=== PATIENT | female | born 1990 | race Caucasian/White ===

== ENCOUNTER 2018-05-09 08:11 | Inpatient (IN) | payer SELFPAY ==
[2018-05-09] MEDS ORDERED: POLYCILLIN/NS 2 GM/100 ML 2 GM/100 ML BAG IV ONE (08:27)
[2018-05-09] MEDS ORDERED: LACTATED RINGERS 1,000 ML IV SCH (09:00)
[2018-05-09 09:12] LABS: Hematocrit 31.3 % (30.3-42.9); Hemoglobin 10.6 gm/dl (10.1-14.3); Mean Corpuscular HGB Conc 34 % (30-34); Mean Corpuscular Volume 73 fl (79-97); Platelet Count 230 K/mm3 (140-440); Red Cell Distribution Width 15.3 % (13.2-15.2)
[2018-05-09 09:15] LABS: Mean Corpuscular Hemoglobin 25 pg (28-32)
[2018-05-09] MEDS ORDERED: BRETHINE SUB-Q PRN (09:27)
[2018-05-09] MEDS ORDERED: XYLOCAINE 2% INFILTRATI ONE (09:27)
[2018-05-09] MEDS ORDERED: MINERAL OIL PO PRN (09:27)
[2018-05-09] MEDS ORDERED: BRETHINE IVP PRN (09:27)
[2018-05-09] MEDS: SUBLIMAZE IV PRN ×2 (09:45→11:50)
--- NOTE | 2018-05-09 09:51 | History and Physical Report ---
History of Present Illness Date of examination: 05/09/18 Date of admission: 05/09/18 08:12 Chief complaint: Contractions History of present illness: 27yo G 3 P 2 0 0 2 at 37 weeks 5 days here with c/o painful contractions since 6am. She reports +FMs and spotting but denies LOF. She is a [facility] patient who initiated care at 5 weeks gestation. record reviewed. Her course was complicated by Rh neg status (RhoGam given 03/06/18) and anemia. She has a history of pyelonephritis (tx'd 09/09 and depression in 2015 (not on med). labs: A neg, antibody neg, pap test normal, Rubella immune, VDRL neg, HBsAg neg, HIV neg, CT/NG neg, MSAFP neg, 1-hr GTT 54, H/H 05/01: 34.5/10.9, GBS pos. Past History Past Medical History: other (pyelonephritis, depression (2015)) Family/Genetic History: diabetes (maternal grandparents), hypertension (Aunt, paternal grandmother), cancer (breast cancer - maternal grandmother) Social history: single, lives with family, smoking (tobacco (social)), other ( alcohol - social). denies: alcohol abuse, prescription drug abuse, IV drug use - Obstetrical History Expected Date of Delivery: 05/25/18 Actual Gestation: 37 Week(s) 5 Day(s) : 3 Para: 2 Hx # Term Pregnancies: 2 Number of Pregnancies: 0 Spontaneous Abortions: 0 Induced : 0 Number of Living Children: 2 #1 Infant Gender: Female year: 2,[birth year] Birthweight: 3.175 kg (7 lbs) Method of Delivery: Vaginal Gestational age at delivery: 40 Complications: none #2 Infant Gender: Male year: 2,[birth year] Birthweight: 3.175 kg (7 lbs) Method of Delivery: Vaginal Gestational age at delivery: 40 Complications: none Medications and Allergies Allergies Allergy/AdvReac Type Severity Reaction Status Date / Time No Known Allergies Allergy Verified 05/09/18 08:34 Active Meds: Active Medications Ephedrine Sulfate (Ephedrine Sulfate) 10 mg IV Q2M PRN PRN Reason: Hypotension Fentanyl (Sublimaze) 100 mcg IV Q2H PRN PRN Reason: Pain Ampicillin Sodium (Ampicillin/Ns 1 Gm/50 Ml) 1 gm in 50 mls @ 100 mls/hr IV Q4HR NICK; Protocol Lactated Ringer's (Lactated Ringers) 1,000 mls @ 125 mls/hr IV DIRECT NICK Oxytocin/Sodium Chloride (Pitocin/Ns 20 Unit/1000ml Drip) 20 units in 1,000 mls @ 125 mls/hr IV DIRECT NICK Oxytocin/Sodium Chloride (Pitocin/Ns 30 Unit/500ml) 30 units in 500 mls @ 0 mls /hr IV TITR NICK; Protocol Mineral Oil (Mineral Oil) 30 ml PO QHS PRN PRN Reason: Constipation Terbutaline Sulfate (Brethine) 0.25 mg SUB-Q ONCE PRN PRN Reason: Hyperstimulation/Hypertonicity Terbutaline Sulfate (Brethine) 0.25 mg IVP ONCE PRN PRN Reason: Hyperstimulation/Hypertonicity Review of Systems All systems: negative - Obstetrical FHR: auscultation normal, category 1 FHR comments: baseline 150, moderate variability, 15x15 accels, no decels Uterine Contraction Monitor Mode: External Cervical Dilatation: 4.5 (per RN) Cervical Effacement Percentage: 80 (per RN) station: -2 (per RN) Uterine Contraction Frequency (min): 3-5 Uterine Contraction Pattern: Regular Results Result Diagrams: 05/09/18 08:45 Abnormal lab results 05/09/18 Range/Units 08:45 MCV 73 L (79-97) fl MCH 25 L (28-32) pg RDW 15.3 H (13.2-15.2) % All other labs normal. Assessment and Plan - Patient Problems (1) 37 weeks gestation of Current Visit: Yes Status: Acute (2) Active labor at term Current Visit: Yes Status: Acute Plan to address problem: Admit to L&D with routine labor orders Anticipate vaginal delivery (3) GBS (group B Streptococcus carrier), +RV culture, currently Current Visit: Yes Status: Acute Plan to address problem: Start antibiotics therapy with ampicillin
[2018-05-09] MEDS ORDERED: PITOCin/NS 30 UNIT/500ML 30 UNITS/500 ML BAG IV SCH (10:00)
[2018-05-09] MEDS ORDERED: PITOCin/NS 20 UNIT/1000ML DRIP 20 UNITS/1,000 ML BAG IV SCH (10:00)
[2018-05-09] MEDS ORDERED: AMPICILLIN/NS 1 GM/50 ML 1 GM/50 ML BAG IV SCH (10:00)
[2018-05-09] MEDS ORDERED: NARCAN 2 MG/2 ML IV PRN (13:39)
--- NOTE | 2018-05-09 13:39 | Anesthesia Consultation ---
Anesthesia Consult and Med Hx Date of service: 05/09/18 - Airway Anesthetic Teeth Evaluation: Good ROM Head & Neck: Adequate Mental/Hyoid Distance: Adequate Mallampati Class: Class II Intubation Access Assessment: Probably Good - Pre-Operative Health Status ASA Pre-Surgery Classification: ASA2 Proposed Anesthetic Plan: Epidural, Spinal - Pulmonary Hx Asthma: No COPD: No Hx Pneumonia: No - Cardiovascular System Hx Hypertension: No - Central Nervous System Hx Seizures: No Hx Psychiatric Problems: No - Endocrine Hx Renal Disease: No Hx End Stage Renal Disease: No Hx Hypothyroidism: No Hx Hyperthyroidism: No - Hematic Hx Anemia: No Hx Sickle Cell Disease: No - Other Systems Hx Alcohol Use: No
[2018-05-09] MEDS: fentaNYL-BUPIV 2 MCG/ML-0.125% 200 MCG/100 ML BAG EPIDURAL SCH ×2 (14:30→17:40)
--- NOTE | 2018-05-09 17:31 | Procedure Note ---
OB Delivery Note - Delivery Date of Delivery: 05/09/18 (17:06) Surgeon: RICKEY BURNS (EDOUARD) Estimated blood loss: 200cc - Vaginal Delivery presentation: compound (right anterior arm) Delivery position: OA Intrapartum events: none Delivery induction: none Delivery augmentation: rupture of membranes (AROM @ 1700, clear, moderate), pitocin Delivery monitor: external FHT, external uterine Route of delivery: Delivery placenta: spontaneous (17:14) Delivery cord: nuchal cord, 3 umbilical vessels Episiotomy: none Delivery laceration: none Anesthesia: epidural Delivery comments: of a vigorous 6 lbs 7 oz male on 05/09/18 @ 17:06. Baby placed [id number] on maternal abdomen. After 3 mins, umbilical cord double-clamped by EDOUARD Burns and cut by FOB. Cord blood collected. Spont delivery of placenta, [place]- side presenting @ 17:14. Small lochia noted. Fundal massage and IV Pitocin bolus initiated. Fundus F/ML/U-3. Placenta intact; discarded. No lacerations noted. Perineum intact. Mom and baby in stable condition. - A at 1 minute: 8 at 5 minutes: 9 Gender: Male (6 lbs 7 oz)
[2018-05-09] MEDS ORDERED: TUCKS PAD TP PRN (17:33)
[2018-05-09] MEDS ORDERED: BENADRYL PO PRN (17:33)
[2018-05-09] MEDS ORDERED: LANSINOH TP PRN (17:33)
[2018-05-09] MEDS ORDERED: DULCOLAX PR PRN (17:33)
[2018-05-09] MEDS ORDERED: PHENERGAN PR PRN (17:33)
[2018-05-09] MEDS ORDERED: MILK OF MAGNESIA PO PRN (17:33)
[2018-05-09] MEDS ORDERED: PHENERGAN PO PRN (17:33)
[2018-05-09] MEDS ORDERED: TYLENOL PO PRN (17:33)
[2018-05-09] MEDS ORDERED: ZOFRAN IV PRN (17:33)
[2018-05-09] MEDS ORDERED: SODIUM CHLORIDE FLUSH SYRINGE 10 ML IV SCH (18:00)
[2018-05-09] MEDS: MOTRIN PO SCH (18:18)
[2018-05-10] MEDS: MOTRIN PO SCH ×4 (06:00→17:55)
[2018-05-10 06:24] LABS: Hematocrit 33.4 % (30.3-42.9); Hemoglobin 10.9 gm/dl (10.1-14.3)
[2018-05-10] MEDS: PRENATAL VITAMIN PO SCH (09:29)
--- NOTE | 2018-05-10 10:39 | Progress Note ---
Assessment and Plan A: day 1 S/P . Anemia. P: Supplement with iron. Encourage ambulation. Anticipate discharge tomorrow afternoon. Subjective - Subjective Date of service: 05/10/18 Principal diagnosis: day 1 S/P . Interval history: day 1 S/P . Patient is doing well. Patient reports small amount of lochia. She reports she is voiding without difficulty. Tolerating a regular diet without nausea or vomiting. Patient denies headache, chest pain, cough, shortness of breath, chest pain, leg pain, or heavy vaginal bleeding. Patient reports: appetite normal, voiding normally, pain well controlled, flatus , ambulating normally : doing well Objective - Vital Signs Latest vital signs: Vital Signs Temp Pulse Resp BP BP 05/10/18 07:00 98.7 F 74 18 101/69 05/09/18 23:30 98.6 F 71 16 101/79 05/09/18 19:30 98.7 F 67 18 112/64 05/09/18 18:12 96 H 117/80 05/09/18 17:56 88 116/58 05/09/18 17:41 82 122/65 05/09/18 17:26 90 115/59 05/09/18 17:11 93 H 118/62 05/09/18 16:57 81 114/57 05/09/18 16:26 79 109/68 05/09/18 16:11 67 106/63 05/09/18 15:56 79 114/59 05/09/18 15:41 94 H 124/57 05/09/18 15:28 86 131/61 05/09/18 15:12 88 120/68 05/09/18 14:57 86 119/63 05/09/18 14:41 75 106/58 05/09/18 14:39 80 95/50 05/09/18 14:37 79 114/64 05/09/18 14:35 89 107/60 05/09/18 14:34 95 H 122/60 05/09/18 14:31 96 H 112/63 05/09/18 14:29 99 H 118/61 05/09/18 14:27 94 H 119/56 05/09/18 14:25 87 110/66 05/09/18 14:23 83 114/69 05/09/18 14:21 95 H 111/64 05/09/18 14:19 94 H 107/62 05/09/18 14:17 86 107/59 05/09/18 14:15 107 H 109/66 05/09/18 14:13 96 H 109/59 05/09/18 14:11 98 H 111/66 05/09/18 14:09 83 108/62 05/09/18 14:07 101 H 108/62 05/09/18 14:05 89 104/63 05/09/18 14:03 96 H 101/72 05/09/18 14:01 86 106/63 05/09/18 13:59 87 115/67 05/09/18 13:57 97 H 116/57 05/09/18 13:55 83 110/62 05/09/18 13:53 80 103/57 05/09/18 13:51 82 103/57 05/09/18 13:49 81 111/56 05/09/18 13:37 80 114/55 05/09/18 13:20 80 106/59 05/09/18 13:06 77 102/59 05/09/18 12:50 81 110/64 05/09/18 12:35 86 109/65 05/09/18 12:20 80 109/63 05/09/18 12:06 75 111/61 05/09/18 11:50 76 110/71 Intake and Output 05/09/18 05/10/18 05/10/18 23:59 07:59 15:59 Intake Total 800 Output Total 1400 600 Balance -600 -600 Intake: Oral 200 Intake, Free Water 600 Output: Urine 1400 600 Void 1400 600 Other: Total, Intake Amount 200 Total, Output Amount 600 600 # Voids Void 1 1 Estimated Blood Loss 200 - Exam Abdomen: Present: normal appearance, soft. Absent: distention, tenderness, guarding, rigidity Uterus: Present: normal, firm, fundal height below umbilicus Extremities: Present: normal
[2018-05-10] MEDS: NORCO 5/325 PO PRN (20:51)
[2018-05-11] MEDS: MOTRIN PO SCH
[2018-05-11 07:21] VITALS: BP 106/67
[2018-05-11] MEDS: NORCO 5/325 PO PRN (09:30)
[2018-05-11] MEDS: PRENATAL VITAMIN PO SCH (09:30)
--- NOTE | 2018-05-11 10:46 | Progress Note ---
Assessment and Plan A: day 2 S/P . Anemia. P: Discharge patient home today. Discussed with patient discharge instructions and warning signs. Advised pt. to continue vitamins and iron supplements (pt. has these at home). Pt. to take Motrin as needed for cramping (Rx Motrin 800 mg, #30, 1 po every 8 hours prn was called to [facility] pharmacy). Advised pt. to avoid intercourse, avoid lifting, driving , and heavy housework. Advised pt. to follow up at [facility] in 6 weeks. Pt. plans to use OCPs for contraception at her 6 week follow up visit. Pt. voiced understanding of instructions. Subjective - Subjective Date of service: 05/11/18 Principal diagnosis: day 2 S/P . Interval history: day 2 S/P . Patient is doing well. She desires discharge today. Patient reports small amount of lochia. She is voiding without difficulty and ambulating well. She is tolerating a regular diet without nausea or vomiting. Patient is planning to use OCPs for contraception at 6 weeks . Patient denies headache, cough, chest pain, shortness of breath, abdominal pain , leg pain, heavy vaginal bleeding, or symptoms of depression. Patient reports: appetite normal, voiding normally, pain well controlled, flatus , ambulating normally [place]: doing well Objective - Vital Signs Latest vital signs: Vital Signs Temp Pulse Resp BP BP Pulse Ox 05/11/18 07:00 98.6 F 66 18 106/67 05/11/18 00:00 98.6 F 66 18 102/75 05/10/18 15:02 98.3 F 99 H 18 117/67 99 05/10/18 10:46 98.6 F 96 H 18 106/68 97 Intake and Output 05/10/18 05/11/18 05/11/18 23:59 07:59 15:59 Intake Total 300 300 Balance 300 300 Intake: Intake, Free Water 300 300 - Exam Cardiovascular: Present: Regular rate, Normal S1, Normal S2 Lungs: Present: Clear to auscultation Abdomen: Present: normal appearance, soft, normal bowel sounds. Absent: distention, tenderness, guarding, rigidity Uterus: Present: normal, firm, fundal height below umbilicus. Absent: bogginess , tenderness Extremities: Present: normal. Absent: tenderness, edema
--- NOTE | 2018-05-11 10:54 | Discharge Summary ---
Providers - Providers Date of Admission: 05/09/18 08:12 Date of discharge: 05/11/18 Attending physician: JANI KELLY MD Primary care physician: JANI KELLY MD Hospitalization Reason for admission: active labor Delivery: Episiotomy: none Laceration: none Other procedures: none complications: none Discharge diagnosis: IUP at term delivered [place] baby: male Pertinent studies: Labs Hospital course: Normal hospital course. Condition at discharge: Good Disposition: DC-01 TO HOME OR SELFCARE - Discharge Diagnoses (1) Term delivered Status: Acute Plan - Provider Discharge Summary Activity: routine, no sex for 6 weeks, no heavy lifting 4 weeks, no strenuous exercise Diet: routine Instructions: routine Additional instructions: Call your doctor immediately for: * Fever > 100.5 * Heavy vaginal bleeding ( >1 pad per hour) * Severe persistent headache * Shortness of breath * Reddened, hot, painful area to leg or breast - Follow up plan Follow up: JANI KELLY MD [Primary Care Provider] - 6 Weeks
== END 2018-05-11 13:45 | disposition home or self-care (01) | DRG 775 ==
LOC: TRG 08:11 → LD 08:12 → TRG 08:13 → OB 18:56
PROVIDERS: ADMIT Obstetrics & Gynecology; ATTEND Obstetrics & Gynecology
PROC: 10907ZC Drainage of Amniotic Fluid, Therapeutic from Products of Conception, Via Natural or Artificial Opening (ICD-10-PCS; principal; 2018-05-09)
PROC: 10E0XZZ Delivery of Products of Conception, External Approach (ICD-10-PCS; 2018-05-09)
PROC: 3E0R3BZ Introduction of Anesthetic Agent into Spinal Canal, Percutaneous Approach (ICD-10-PCS; 2018-05-09)
PROC: 00HU33Z Insertion of Infusion Device into Spinal Canal, Percutaneous Approach (ICD-10-PCS; 2018-05-09)
PROC: 3E0234Z Introduction of Serum, Toxoid and Vaccine into Muscle, Percutaneous Approach (ICD-10-PCS; 2018-05-11)
DX: O36.0930 Maternal care for other rhesus isoimmunization, third trimester, not applicable or unspecified (principal); O99.344 Other mental disorders complicating childbirth; F32.9 Major depressive disorder, single episode, unspecified; O99.824 Streptococcus B carrier state complicating childbirth; O69.81X0 Labor and delivery complicated by cord around neck, without compression, not applicable or unspecified; O90.81 Anemia of the puerperium; D64.9 Anemia, unspecified; Z3A.37 37 weeks gestation of pregnancy; Z37.0 Single live birth; Z83.3 Family history of diabetes mellitus; Z82.49 Family history of ischemic heart disease and other diseases of the circulatory system; Z80.3 Family history of malignant neoplasm of breast
CPT/HCPCS: 36415; 85014; 85018; 85027; 85461; 86592; 86850; 86900; 86901; J0290; J2590; J2790; J7120

== ENCOUNTER 2019-04-08 20:01 | Inpatient (IN) | payer OTHER ==
[2019-04-08] MEDS ORDERED: XYLOCAINE 2% INFILTRATI ONE ×2 (20:11→20:39)
[2019-04-08] MEDS ORDERED: PITOCin/NS 20 UNIT/1000ML DRIP 20,000 MILLIUNITS/1,000 ML BAG IV ONE (20:11)
[2019-04-08] MEDS ORDERED: AMPICILLIN/NS 2 GM/100 ML 0 GM/0 ML BAG IV ONE (20:17)
[2019-04-08] MEDS ORDERED: SUBLIMAZE ONE (20:32)
[2019-04-08] MEDS ORDERED: SUBLIMAZE IV PRN (20:39)
[2019-04-08] MEDS ORDERED: MINERAL OIL PO PRN (20:39)
[2019-04-08] MEDS ORDERED: BENADRYL PO PRN (20:55)
[2019-04-08] MEDS ORDERED: LANSINOH TP PRN (20:55)
[2019-04-08] MEDS ORDERED: TUCKS PAD TP PRN (20:55)
[2019-04-08] MEDS ORDERED: SODIUM CHLORIDE FLUSH SYRINGE 10 ML IV PRN (21:00)
[2019-04-08] MEDS ORDERED: PITOCin/NS 20 UNIT/1000ML DRIP 20 UNITS/1,000 ML BAG IV SCH (21:00)
[2019-04-08] MEDS ORDERED: LACTATED RINGERS 1,000 ML IV SCH (21:00)
[2019-04-08 21:01] LABS: Hematocrit 30.4 % (30.3-42.9); Hemoglobin 9.9 gm/dl (10.1-14.3); Mean Corpuscular HGB Conc 33 % (30-34); Mean Corpuscular Volume 70 fl (79-97); Platelet Count 223 K/mm3 (140-440); Red Blood Count 4.34 M/mm3 (3.65-5.03); Red Cell Distribution Width 16.5 % (13.2-15.2)
--- NOTE | 2019-04-08 21:02 | History and Physical Report ---
History of Present Illness Date of examination: 04/08/19 Date of admission: 04/08/19 20:09 Chief complaint: Intense Labor Pains History of present illness: States she received care at [facility], [place] hospital course was uncomplicated. No records available. Past History Past Medical History: no pertinent history Past Surgical History: appendectomy (2004) Family/Genetic History: none Social history: no significant social history, single - Obstetrical History Expected Date of Delivery: 04/28/19 Actual Gestation: 37 Week(s) 1 Day(s) : 4 Para: 3 Hx # Term Pregnancies: 3 Number of Living Children: 3 Medications and Allergies Allergies Allergy/AdvReac Type Severity Reaction Status Date / Time No Known Allergies Allergy Verified 05/09/18 08:34 Home Medications Medication Instructions Recorded Confirmed Last Taken Type No Known Home Medications [No 05/09/18 05/09/18 Unknown History Reported Home Medications] Active Meds: Active Medications Ephedrine Sulfate (Ephedrine Sulfate) 10 mg IV Q2M PRN PRN Reason: Hypotension Fentanyl (Sublimaze) 100 mcg IV Q2H PRN PRN Reason: Labor Pain Oxytocin/Sodium Chloride (Pitocin/Ns 20 Unit/1000ml Drip) 20 units in 1,000 mls @ 125 mls/hr IV DIRECT NICK Lactated Ringer's (Lactated Ringers) 1,000 mls @ 125 mls/hr IV DIRECT NICK Mineral Oil (Mineral Oil) 30 ml PO QHS PRN PRN Reason: Constipation Review of Systems All systems: negative - Physical Exam Breasts: Positive: normal Cardiovascular: Regular rate Lungs: Positive: Clear to auscultation, Normal air movement Abdomen: Positive: normal appearance, soft, normal bowel sounds Genitourinary (Female): Positive: normal external genitalia, normal perenium Vagina: Positive: normal moisture Uterus: Positive: enlarged Extremities: Positive: normal - Obstetrical FHR: category 1 Uterine Contraction Monitor Mode: External Cervical Dilatation: 9 Cervical Effacement Percentage: 100 station: 0 Uterine Contraction Pattern: Regular Uterine Tone Measurement Phase: Resting Uterine Contraction Intensity: Moderate Results All other labs normal. Assessment and Plan A: IUP @ 37 1/7 Weeks Active Labor GBS Unknown P: Admit to L&D per Routine Orders GBS Prophylaxis Anticipate
--- NOTE | 2019-04-08 21:13 | Procedure Note ---
OB Delivery Note - Delivery Date of Delivery: 04/08/19 (2034) Surgeon: KRYSTA MORIN Estimated blood loss: 300cc - Vaginal Delivery presentation: vertex Delivery position: OA Intrapartum events: none Delivery induction: none Delivery monitor: external FHT, external uterine Route of delivery: Delivery placenta: spontaneous Delivery cord: 3 umbilical vessels Episiotomy: none Delivery laceration: none Anesthesia: none Delivery comments: of a live 7'0 male over a intact perineum under IV pain control with Apgars of 8 and 9 at 2034 on 04/08/2019. directly to maternal abd/chest, skin to skin contact. Spontaneous delivery of placenta complete and intact with [place] side presenting at 2040. Fundus is firm and midline located 4 below the U. Lochia is scant. Delayed cord clamping and cutting; Cord cut by the Father of the Baby. Cord blood collected; Placenta discarded. - A at 1 minute: 8 at 5 minutes: 9 Infant Gender: Male (7'0)
[2019-04-08] MEDS: NORCO 5/325 PO PRN (22:53)
[2019-04-09] MEDS: IBUPROFEN PO SCH ×4 (05:08→17:30)
[2019-04-09] MEDS: NORCO 5/325 PO PRN ×2 (06:16→14:34)
[2019-04-09 10:20] LABS: Hematocrit 29.8 % (30.3-42.9); Hemoglobin 9.9 gm/dl (10.1-14.3)
--- NOTE | 2019-04-09 10:46 | Progress Note ---
Assessment and Plan A: PPD#1 s/p Pain well controlled Stable P: Routine PP orders Encouraged ambulation in room Anticipate discharge home in 24-48 hrs Subjective - Subjective Date of service: 04/09/19 Principal diagnosis: PPD#1 s/p Patient reports: appetite normal, voiding normally, pain well controlled, flatus, ambulating normally : doing well, bottle feeding Objective - Vital Signs Latest vital signs: Vital Signs Temp Pulse Resp BP BP Pulse Ox 04/09/19 09:19 98.2 F 97 H 18 119/67 04/09/19 03:10 98.2 F 72 18 119/82 99 04/08/19 23:23 89 16 132/81 100 04/08/19 23:15 98.4 F 85 16 132/81 99 04/08/19 22:39 75 124/82 04/08/19 22:31 86 111/75 04/08/19 22:26 85 110/71 04/08/19 21:54 83 129/76 04/08/19 21:52 85 123/71 04/08/19 21:39 82 126/73 04/08/19 21:24 83 121/72 04/08/19 21:23 80 117/69 04/08/19 21:09 82 118/66 04/08/19 21:02 83 112/55 Intake and Output 04/08/19 04/09/19 04/09/19 23:59 07:59 15:59 Intake Total 240 Output Total 400 Balance -160 Intake: Oral 240 Output: Urine 400 Void 400 Other: Total, Intake Amount 240 Total, Output Amount 400 # Voids Void 1 Weight 95.254 kg Estimated Blood Loss 300 - Exam Breasts: Present: normal Cardiovascular: Present: Regular rate, Normal S1, Normal S2, No murmurs Lungs: Present: Clear to auscultation, Normal air movement Abdomen: Present: normal appearance, soft, normal bowel sounds. Absent: distention Vulva: both: normal Uterus: Present: firm, fundal height at umbilicus Extremities: Present: normal Deep Tendon Reflex Grade: Normal +2 - Labs Labs: Abnormal lab results 04/08/19 04/09/19 Range/Units 20:21 09:23 Hgb 9.9 L 9.9 L (10.1-14.3) gm/dl Hct 29.8 L (30.3-42.9) % MCV 70 L (79-97) fl MCH 23 L (28-32) pg RDW 16.5 H (13.2-15.2) %
--- NOTE | 2019-04-09 10:47 | Discharge Summary ---
Providers - Providers Date of Admission: 04/08/19 20:09 Date of discharge: 04/10/19 Attending physician: JANI KELLY MD Primary care physician: JANI KELLY MD Hospitalization Reason for admission: active labor, IUP at term Delivery: Procedure details: See delivery note Episiotomy: none Laceration: none Other procedures: none complications: none Discharge diagnosis: IUP at term delivered [place] baby: male Condition at discharge: Good Disposition: DC-01 TO HOME OR SELFCARE Plan - Provider Discharge Summary Activity: routine, no sex for 6 weeks, no heavy lifting 4 weeks, no strenuous exercise Diet: routine Instructions: routine Additional instructions: [] Smoking cessation referral if applicable(refer to patient education folder for contact #) [] Refer to [facility] Booklet Call your doctor immediately for: * Fever > 100.5 * Heavy vaginal bleeding ( >1 pad per hour) * Severe persistent headache * Shortness of breath * Reddened, hot, painful area to leg or breast * Drainage or odor from incision. * Keep incision clean and dry at all times and follow doctor's instructions regarding bathing/showering - Follow up plan Follow up: JANI KELLY MD [Primary Care Provider] - 6 Weeks
[2019-04-10] MEDS: IBUPROFEN PO SCH ×4 (00:11→18:30)
[2019-04-10 17:52] VITALS: BP 113/69
== END 2019-04-10 20:50 | disposition home or self-care (01) | DRG 807 ==
LOC: TRG 20:01 → LD 20:09 → OB 23:14
PROVIDERS: ADMIT Obstetrics & Gynecology; ATTEND Obstetrics & Gynecology
PROC: 10E0XZZ Delivery of Products of Conception, External Approach (ICD-10-PCS; principal; 2019-04-08)
DX: O80 Encounter for full-term uncomplicated delivery (principal); Z37.0 Single live birth; Z3A.37 37 weeks gestation of pregnancy
CPT/HCPCS: 36415; 85014; 85018; 85027; 86592; 86850; 86900; 86901; G0378; J0290; J2590; J3010